=== PATIENT | female | born 1965 | race Caucasian/White ===

== ENCOUNTER 2018-11-19 15:11 | Emergency (ER) | payer OTHER ==
[~2018-11-19] VITALS: Ht 167.6 cm; Wt 95.2 kg
[~2018-11-19 15:11] MED LIST: Aspir 8181 MG PO; CEPH500 PO; Cleocin HCl300 MG PO; FERSU250ER PO; HEARTBURN; HYDCHL25 PO; IBUP600 PO; Lasix20 MG PO; Lasix40 MG PO; MAGCIT300 PO; Norco 5-325 Ta1 EACH PO; SENNP PO; SULTRIDS PO; Zithromax250 MG PO
== END 2018-11-19 16:39 | disposition home or self-care (01) ==
LOC: ER 15:11
DX: S61.211A Laceration without foreign body of left index finger without damage to nail, initial encounter (principal); F17.200 Nicotine dependence, unspecified, uncomplicated; Z79.899 Other long term (current) drug therapy; W26.0XXA Contact with knife, initial encounter
CPT/HCPCS: 12001; 90471; 90714; 99282-25

== ENCOUNTER 2018-11-29 21:17 | Emergency (ER) | payer OTHER ==
[~2018-11-29] VITALS: Ht 167.6 cm; Wt 90.7 kg
[2018-11-29] MEDS ORDERED: Keflex500 MG PO (22:55)
[2018-11-29] MEDS ORDERED: Bactrim Ds Tab1 EACH PO (22:55)
== END 2018-11-29 23:00 | disposition home or self-care (01) ==
LOC: ER 21:17
DX: S61.211D Laceration without foreign body of left index finger without damage to nail, subsequent encounter (principal); L02.512 Cutaneous abscess of left hand; L03.012 Cellulitis of left finger; Z79.899 Other long term (current) drug therapy; F17.200 Nicotine dependence, unspecified, uncomplicated
CPT/HCPCS: 99281

== ENCOUNTER 2020-08-04 21:13 | Emergency (ER) | payer OTHER ==
[~2020-08-04] VITALS: Ht 167.6 cm; Wt 104.3 kg
[~2020-08-04 21:13] MED LIST changes: +Bactrim Ds Tab1 EACH PO; +Keflex500 MG PO
[2020-08-04 23:51] LABS: BASOPHILS ABSOLUTE AUTO 0.07 K/mm3 (0.00-0.23); BASOPHILS PERCENT AUTO 1 % (0-2); EOSINOPHILS ABSOLUTE AUTO 0.14 K/mm3 (0.00-0.68); EOSINOPHILS PERCENT AUTO 1 % (0-6); Hematocrit 43.4 % (33.0-51.0); Hemoglobin 14.7 g/dL (11.5-16.0); IMMATURE GRAN ABSOLUTE AUTO 0.03 K/mm3 (0.00-0.10); IMMATURE GRAN PERCENT AUTO 0 % (0-1); LYMPHOCYTES ABSOLUTE AUTO 3.38 K/mm3 (0.84-5.20); LYMPHOCYTES PERCENT AUTO 24 % (21-46); MONOCYTES ABSOLUTE AUTO 1.19 K/mm3 (0.16-1.47); MONOCYTES PERCENT AUTO 9 % (4-13); Mean Corpuscular HGB 30.2 pg (26.0-34.0); Mean Corpuscular HGB Conc 33.9 g/dL (31.5-36.5); Mean Corpuscular Volume 89 fL (80-100); Mean Platelet Volume 8.8 fL (9.1-12.4); NEUTROPHILS ABSOLUTE AUTO 9.27 K/mm3 (1.96-9.15); NEUTROPHILS PERCENT AUTO 66 % (41-73); Platelet Count 382 K/mm3 (150-400); RDW Coefficient Variation 13.1 % (11.7-14.2); RDW Standard Deviation 42.6 fL (35.1-46.3); Red Blood Cell Count 4.87 M/mm3 (3.80-5.20); White Blood Cell Count 14.08 K/mm3 (4.00-11.30)
[2020-08-05 00:06] LABS: Alanine Aminotransfer (ALT/SGP 44 U/L (12-78); Albumin, Blood 3.9 g/dL (3.4-5.0); Albumin/Globulin Ratio 0.9 (0.8-1.8); Alk Phos 87 U/L (50-136); Anion Gap 7 mmol/L (6-16); Aspartate Aminotrans (AST/SGOT 40 U/L (12-37); Bilirubin, Total 0.5 mg/dL (0.1-1.0); Blood Urea Nitrogen 28 mg/dL (8-24); Bun/Creatinine Ratio 21.9 (12.0-20.0); CO2, Blood 27 mmol/L (21-32); Calcium, Blood 9.2 mg/dL (8.5-10.1); Chloride, Blood 102 mmol/L (98-108); Creatinine, Blood 1.28 mg/dL (0.40-1.00); Globulin, Blood 4.4 g/dL (2.2-4.0); Glomerular Filtration Rate 46 (60-); Glucose, Blood 124 mg/dL (70-99); Potassium, Blood 3.5 mmol/L (3.5-5.5); Sodium, Blood 136 mmol/L (136-145); Total Protein, Blood 8.3 g/dL (6.4-8.2); Troponin I <0.015 ng/mL (0.000-0.040)
[2020-08-05] MEDS ORDERED: Neurontin 100100 MG PO (00:37)
== END 2020-08-05 01:00 | disposition home or self-care (01) ==
LOC: ER 21:13
PROVIDERS: Physician Assistant
DX: G62.9 Polyneuropathy, unspecified (principal); Z86.718 Personal history of other venous thrombosis and embolism
CPT/HCPCS: 36415; 71046; 80053; 83690; 83880; 84484; 85025; 93005; 93010; 93970; 99284-25

== ENCOUNTER 2020-11-21 19:53 | Emergency (ER) | payer OTHER ==
[~2020-11-21] VITALS: Ht 167.6 cm; Wt 90.7 kg
[~2020-11-21 19:53] MED LIST changes: +Neurontin 100100 MG PO
[2020-11-21] MEDS ORDERED: CEPH500 PO (21:58)
== END 2020-11-21 22:11 | disposition home or self-care (01) ==
LOC: ER 19:53
DX: L03.116 Cellulitis of left lower limb (principal); L97.929 Non-pressure chronic ulcer of unspecified part of left lower leg with unspecified severity; F17.210 Nicotine dependence, cigarettes, uncomplicated
CPT/HCPCS: 73590; 99283-25; A9270

== ENCOUNTER 2021-03-20 00:23 | Day surgery (SDC) | payer OTHER ==
[~2021-03-20 00:23] MED LIST changes: +Percocet 5-3251 EACH PO
== END 2021-03-20 23:07 | disposition home or self-care (01) ==
LOC: WOUND 00:23
DX: L97.219 Non-pressure chronic ulcer of right calf with unspecified severity (principal); L97.229 Non-pressure chronic ulcer of left calf with unspecified severity; L97.829 Non-pressure chronic ulcer of other part of left lower leg with unspecified severity; I87.312 Chronic venous hypertension (idiopathic) with ulcer of left lower extremity; I87.311 Chronic venous hypertension (idiopathic) with ulcer of right lower extremity; R60.0 Localized edema; L03.116 Cellulitis of left lower limb; I73.9 Peripheral vascular disease, unspecified
CPT/HCPCS: A9270; G0463

== ENCOUNTER → 2021-03-27 | Day surgery (SDC) | payer OTHER | LOC: WOUND 01:21 | DX: I87.313 Chronic venous hypertension (idiopathic) with ulcer of bilateral lower extremity (principal); L97.229 Non-pressure chronic ulcer of left calf with unspecified severity; L97.819 Non-pressure chronic ulcer of other part of right lower leg with unspecified severity; R60.0 Localized edema; L03.116 Cellulitis of left lower limb; I73.9 Peripheral vascular disease, unspecified | CPT/HCPCS: G0463 ==

== ENCOUNTER 2021-04-10 01:10 | Day surgery (SDC) | payer OTHER | END 2021-04-10 23:37 | disposition home or self-care (01) | LOC: WOUND 01:10 | DX: I87.313 Chronic venous hypertension (idiopathic) with ulcer of bilateral lower extremity (principal); L97.222 Non-pressure chronic ulcer of left calf with fat layer exposed; L97.819 Non-pressure chronic ulcer of other part of right lower leg with unspecified severity; R60.0 Localized edema; L03.116 Cellulitis of left lower limb; I73.9 Peripheral vascular disease, unspecified ==

== ENCOUNTER 2021-04-12 01:55 | Day surgery (SDC) | payer OTHER | END 2021-04-12 12:00 | disposition home or self-care (01) | LOC: WOUND 01:55 | DX: L97.222 Non-pressure chronic ulcer of left calf with fat layer exposed (principal) ==

== ENCOUNTER 2021-04-19 03:14 | Day surgery (SDC) | payer OTHER | END 2021-04-19 23:16 | disposition home or self-care (01) | LOC: WOUND 03:14 | DX: L97.222 Non-pressure chronic ulcer of left calf with fat layer exposed (principal); L97.819 Non-pressure chronic ulcer of other part of right lower leg with unspecified severity; I87.312 Chronic venous hypertension (idiopathic) with ulcer of left lower extremity; I87.311 Chronic venous hypertension (idiopathic) with ulcer of right lower extremity; R60.0 Localized edema; L03.116 Cellulitis of left lower limb; I73.9 Peripheral vascular disease, unspecified | CPT/HCPCS: G0463 ==

== ENCOUNTER 2021-04-24 01:01 | Day surgery (SDC) | payer OTHER | END 2021-04-24 22:53 | disposition home or self-care (01) | LOC: WOUND 01:01 | DX: I87.313 Chronic venous hypertension (idiopathic) with ulcer of bilateral lower extremity (principal); L97.222 Non-pressure chronic ulcer of left calf with fat layer exposed; L97.818 Non-pressure chronic ulcer of other part of right lower leg with other specified severity; L03.116 Cellulitis of left lower limb; I73.9 Peripheral vascular disease, unspecified; R60.0 Localized edema | CPT/HCPCS: A9270; G0463 ==

== ENCOUNTER 2021-05-01 01:56 | Day surgery (SDC) | payer OTHER | END 2021-05-01 23:26 | disposition home or self-care (01) | LOC: WOUND 01:56 | DX: L97.822 Non-pressure chronic ulcer of other part of left lower leg with fat layer exposed (principal); L97.812 Non-pressure chronic ulcer of other part of right lower leg with fat layer exposed; I87.312 Chronic venous hypertension (idiopathic) with ulcer of left lower extremity; I87.311 Chronic venous hypertension (idiopathic) with ulcer of right lower extremity; R60.0 Localized edema; L03.116 Cellulitis of left lower limb; I73.9 Peripheral vascular disease, unspecified | CPT/HCPCS: A9270; G0463 ==

== ENCOUNTER 2021-05-29 00:29 | Day surgery (SDC) | payer OTHER | END 2021-05-29 23:08 | disposition home or self-care (01) | LOC: WOUND 00:29 | DX: I87.313 Chronic venous hypertension (idiopathic) with ulcer of bilateral lower extremity (principal); L97.222 Non-pressure chronic ulcer of left calf with fat layer exposed; L97.812 Non-pressure chronic ulcer of other part of right lower leg with fat layer exposed; L03.116 Cellulitis of left lower limb; I73.9 Peripheral vascular disease, unspecified; R60.0 Localized edema | CPT/HCPCS: A9270 ==

== ENCOUNTER 2021-06-05 01:50 | Day surgery (SDC) | payer OTHER | END 2021-06-05 23:23 | disposition home or self-care (01) | LOC: WOUND 01:50 | DX: I87.313 Chronic venous hypertension (idiopathic) with ulcer of bilateral lower extremity (principal); L97.222 Non-pressure chronic ulcer of left calf with fat layer exposed; L97.812 Non-pressure chronic ulcer of other part of right lower leg with fat layer exposed; R60.0 Localized edema; L03.116 Cellulitis of left lower limb; I73.9 Peripheral vascular disease, unspecified | CPT/HCPCS: A9270; G0463 ==

== ENCOUNTER 2021-06-17 01:54 | Day surgery (SDC) | payer OTHER | END 2021-06-17 22:54 | disposition home or self-care (01) | LOC: WOUND 01:54 | DX: I87.312 Chronic venous hypertension (idiopathic) with ulcer of left lower extremity (principal); I87.311 Chronic venous hypertension (idiopathic) with ulcer of right lower extremity; R60.0 Localized edema; L03.116 Cellulitis of left lower limb; I73.9 Peripheral vascular disease, unspecified; L97.822 Non-pressure chronic ulcer of other part of left lower leg with fat layer exposed; L97.812 Non-pressure chronic ulcer of other part of right lower leg with fat layer exposed ==

== ENCOUNTER 2021-06-19 02:52 | Day surgery (SDC) | payer OTHER | END 2021-06-19 23:22 | disposition home or self-care (01) | LOC: WOUND 02:52 | DX: I87.313 Chronic venous hypertension (idiopathic) with ulcer of bilateral lower extremity (principal); L97.829 Non-pressure chronic ulcer of other part of left lower leg with unspecified severity; L97.819 Non-pressure chronic ulcer of other part of right lower leg with unspecified severity; I73.9 Peripheral vascular disease, unspecified; R60.0 Localized edema ==

== ENCOUNTER 2021-06-25 09:17 | Day surgery (SDC) | payer OTHER | END 2021-06-25 23:49 | disposition home or self-care (01) | LOC: WOUND 09:17 | DX: I87.312 Chronic venous hypertension (idiopathic) with ulcer of left lower extremity (principal); I87.311 Chronic venous hypertension (idiopathic) with ulcer of right lower extremity; L97.212 Non-pressure chronic ulcer of right calf with fat layer exposed; L97.222 Non-pressure chronic ulcer of left calf with fat layer exposed; L97.812 Non-pressure chronic ulcer of other part of right lower leg with fat layer exposed; L97.822 Non-pressure chronic ulcer of other part of left lower leg with fat layer exposed; L03.116 Cellulitis of left lower limb; R60.0 Localized edema | CPT/HCPCS: A9270; G0463 ==

== ENCOUNTER 2021-07-02 01:29 | Day surgery (SDC) | payer OTHER | END 2021-07-02 23:27 | disposition home or self-care (01) | LOC: WOUND 01:29 | DX: I87.313 Chronic venous hypertension (idiopathic) with ulcer of bilateral lower extremity (principal); L97.212 Non-pressure chronic ulcer of right calf with fat layer exposed; L97.222 Non-pressure chronic ulcer of left calf with fat layer exposed; L03.115 Cellulitis of right lower limb; L03.116 Cellulitis of left lower limb; R60.0 Localized edema | CPT/HCPCS: A9270; G0463 ==

== ENCOUNTER 2022-12-09 02:26 | Day surgery (SDC) | payer OTHER ==
[2022-12-09 14:30] VITALS: BP 141/73
[2022-12-09 14:50] LABS: BASOPHILS ABSOLUTE AUTO 0.06 K/mm3 (0.00-0.23); BASOPHILS PERCENT AUTO 1 % (0-2); EOSINOPHILS ABSOLUTE AUTO 0.26 K/mm3 (0.00-0.68); EOSINOPHILS PERCENT AUTO 3 % (0-6); Hematocrit 37.4 % (33.0-51.0); Hemoglobin 12.6 g/dL (11.5-16.0); IMMATURE GRAN ABSOLUTE AUTO 0.03 K/mm3 (0.00-0.10); IMMATURE GRAN PERCENT AUTO 0 % (0-1); LYMPHOCYTES ABSOLUTE AUTO 2.25 K/mm3 (0.84-5.20); LYMPHOCYTES PERCENT AUTO 25 % (21-46); MONOCYTES ABSOLUTE AUTO 0.68 K/mm3 (0.16-1.47); MONOCYTES PERCENT AUTO 8 % (4-13); Mean Corpuscular HGB Conc 33.7 g/dL (31.5-36.5); Mean Corpuscular Volume 92 fL (80-100); Mean Platelet Volume 8.9 fL (9.1-12.4); NEUTROPHILS ABSOLUTE AUTO 5.77 K/mm3 (1.96-9.15); NEUTROPHILS PERCENT AUTO 64 % (41-73); Platelet Count 274 K/mm3 (150-400); RDW Coefficient Variation 13.5 % (11.7-14.2); RDW Standard Deviation 45.5 fL (35.1-46.3); Red Blood Cell Count 4.07 M/mm3 (3.80-5.20); White Blood Cell Count 9.05 K/mm3 (4.00-11.30)
[2022-12-09 15:10] LABS: Albumin, Blood 3.6 g/dL (3.4-5.0); Bilirubin, Total 0.5 mg/dL (0.1-1.0); Bun/Creatinine Ratio 12.9 (12.0-20.0); Creatinine, Blood 0.93 mg/dL (0.40-1.00); Globulin, Blood 3.6 g/dL (2.2-4.0); Potassium, Blood 3.1 mmol/L (3.5-5.5); Total Protein, Blood 7.2 g/dL (6.4-8.2)
[2022-12-09] MEDS ORDERED: FURO20 PO (16:39)
[2022-12-09] MEDS ORDERED: SILVADENE20 G1 TOP (16:40)
[2022-12-09] MEDS ORDERED: INFLECTRA100 MG IV (16:43)
== END 2022-12-09 17:15 | disposition home or self-care (01) ==
LOC: ATC 02:26
PROVIDERS: Dermatology
DX: L88 Pyoderma gangrenosum (principal)
CPT/HCPCS: 80053; 85025; 96413; 96415; A9270; J7050; Q5103

== ENCOUNTER 2022-12-23 00:20 | Day surgery (SDC) | payer OTHER ==
[~2022-12-23 00:20] MED LIST changes: +FURO20 PO; +INFLECTRA100 MG IV; +SILVADENE20 G1 TOP
[2022-12-23 14:15] VITALS: BP 183/90
--- NOTE | 2022-12-23 15:06 | NUR ---
ELIZABETH ONEILL, TRIED 3 TIMES TO GET IV.
== END 2022-12-23 17:30 | disposition home or self-care (01) ==
LOC: ATC 00:20
DX: L88 Pyoderma gangrenosum (principal); Z79.899 Other long term (current) drug therapy; R60.0 Localized edema
CPT/HCPCS: A9270; J7050; Q5103

== ENCOUNTER 2023-01-20 02:57 | Day surgery (SDC) | payer OTHER ==
[2023-01-20 15:05] VITALS: BP 147/92
[2023-01-20 15:30] LABS: BASOPHILS ABSOLUTE AUTO 0.06 K/mm3 (0.00-0.23); BASOPHILS PERCENT AUTO 1 % (0-2); EOSINOPHILS ABSOLUTE AUTO 0.21 K/mm3 (0.00-0.68); EOSINOPHILS PERCENT AUTO 3 % (0-6); Hematocrit 38.5 % (33.0-51.0); Hemoglobin 12.6 g/dL (11.5-16.0); IMMATURE GRAN ABSOLUTE AUTO 0.02 K/mm3 (0.00-0.10); IMMATURE GRAN PERCENT AUTO 0 % (0-1); LYMPHOCYTES ABSOLUTE AUTO 2.65 K/mm3 (0.84-5.20); LYMPHOCYTES PERCENT AUTO 33 % (21-46); MONOCYTES ABSOLUTE AUTO 0.57 K/mm3 (0.16-1.47); MONOCYTES PERCENT AUTO 7 % (4-13); Mean Corpuscular HGB Conc 32.7 g/dL (31.5-36.5); Mean Corpuscular Volume 95 fL (80-100); Mean Platelet Volume 10.3 fL (9.1-12.4); NEUTROPHILS ABSOLUTE AUTO 4.42 K/mm3 (1.96-9.15); NEUTROPHILS PERCENT AUTO 56 % (41-73); Platelet Count 245 K/mm3 (150-400); RDW Coefficient Variation 13.6 % (11.7-14.2); RDW Standard Deviation 47.8 fL (35.1-46.3); Red Blood Cell Count 4.06 M/mm3 (3.80-5.20); White Blood Cell Count 7.93 K/mm3 (4.00-11.30)
[2023-01-20 16:21] LABS: Albumin, Blood 3.6 g/dL (3.4-5.0); Bilirubin, Total 0.4 mg/dL (0.1-1.0); Bun/Creatinine Ratio 13.1 (12.0-20.0); Calcium, Blood 8.8 mg/dL (8.5-10.1); Creatinine, Blood 0.76 mg/dL (0.40-1.00); Globulin, Blood 3.7 g/dL (2.2-4.0); Potassium, Blood 4.2 mmol/L (3.5-5.5); Total Protein, Blood 7.3 g/dL (6.4-8.2)
== END 2023-01-20 18:10 | disposition home or self-care (01) ==
LOC: ATC 02:57
PROVIDERS: Dermatology
DX: L88 Pyoderma gangrenosum (principal); L73.2 Hidradenitis suppurativa
CPT/HCPCS: 80053; 85025; 96413; 96415; A9270; J7050; Q5103

== ENCOUNTER 2023-03-24 02:27 | Day surgery (SDC) | payer OTHER ==
--- NOTE | 2023-03-19 15:22 | NUR ---
NO CALL, NO SHOW
[2023-03-24 14:35] VITALS: BP 151/76
[2023-03-24 15:29] LABS: BASOPHILS ABSOLUTE AUTO 0.07 K/mm3 (0.00-0.23); BASOPHILS PERCENT AUTO 1 % (0-2); EOSINOPHILS ABSOLUTE AUTO 1.39 K/mm3 (0.00-0.68); EOSINOPHILS PERCENT AUTO 14 % (0-6); Hematocrit 35.4 % (33.0-51.0); Hemoglobin 11.6 g/dL (11.5-16.0); IMMATURE GRAN ABSOLUTE AUTO 0.02 K/mm3 (0.00-0.10); IMMATURE GRAN PERCENT AUTO 0 % (0-1); LYMPHOCYTES ABSOLUTE AUTO 2.63 K/mm3 (0.84-5.20); LYMPHOCYTES PERCENT AUTO 27 % (21-46); MONOCYTES ABSOLUTE AUTO 0.83 K/mm3 (0.16-1.47); MONOCYTES PERCENT AUTO 9 % (4-13); Mean Corpuscular HGB 30.2 pg (26.0-34.0); Mean Corpuscular HGB Conc 32.8 g/dL (31.5-36.5); Mean Corpuscular Volume 92 fL (80-100); Mean Platelet Volume 9.5 fL (9.1-12.4); NEUTROPHILS ABSOLUTE AUTO 4.76 K/mm3 (1.96-9.15); NEUTROPHILS PERCENT AUTO 49 % (41-73); Platelet Count 389 K/mm3 (150-400); RDW Coefficient Variation 13.5 % (11.7-14.2); Red Blood Cell Count 3.84 M/mm3 (3.80-5.20)
[2023-03-24 15:55] LABS: Albumin, Blood 3.2 g/dL (3.4-5.0); Albumin/Globulin Ratio 0.8 (0.8-1.8); Bilirubin, Total 0.4 mg/dL (0.1-1.0); Calcium, Blood 8.9 mg/dL (8.5-10.1); Creatinine, Blood 0.7 mg/dL (0.40-1.00); Globulin, Blood 3.9 g/dL (2.2-4.0); Potassium, Blood 4.4 mmol/L (3.5-5.5); Total Protein, Blood 7.1 g/dL (6.4-8.2)
== END 2023-03-24 17:20 | disposition home or self-care (01) ==
LOC: ATC 02:27
PROVIDERS: Dermatology
DX: L88 Pyoderma gangrenosum (principal)
CPT/HCPCS: 80053; 85025; 96413; 96415; A9270; J7050; Q5103

== ENCOUNTER 2023-09-14 03:33 | Day surgery (SDC) | payer OTHER ==
[2023-09-14] MEDS ORDERED: DiphenhydrAMINE HCL 25 MG Cap PO PRN (07:10)
[2023-09-14] MEDS ORDERED: Loratadine 10 MG Tab PO SCH (07:10)
[2023-09-14] MEDS ORDERED: Acetaminophen 325 MG TABLET PO PRN (07:10)
[2023-09-14 15:00] VITALS: BP 129/76
[2023-09-14] MEDS ORDERED: Infliximab-DYYB 1,000 MG in NS 250 ML IV SCH (15:15)
[2023-09-14 15:26] LABS: Hematocrit 35.7 % (33.0-51.0); Hemoglobin 11.8 g/dL (11.5-16.0); Mean Corpuscular HGB 30.3 pg (26.0-34.0); Mean Corpuscular HGB Conc 33.1 g/dL (31.5-36.5); Mean Corpuscular Volume 92 fL (80-100); Mean Platelet Volume 9.5 fL (9.1-12.4); Platelet Count 229 K/mm3 (150-400); RDW Coefficient Variation 13.6 % (11.7-14.2); RDW Standard Deviation 45.5 fL (35.1-46.3); Red Blood Cell Count 3.89 M/mm3 (3.80-5.20); White Blood Cell Count 7.62 K/mm3 (4.00-11.30)
[2023-09-14 15:52] LABS: Albumin, Blood 3.2 g/dL (3.4-5.0); Albumin/Globulin Ratio 0.8 (0.8-1.8); Bilirubin, Total 0.5 mg/dL (0.1-1.0); Bun/Creatinine Ratio 20.7 (12.0-20.0); Calcium, Blood 8.3 mg/dL (8.5-10.1); Creatinine, Blood 0.68 mg/dL (0.40-1.00); Globulin, Blood 4.1 g/dL (2.2-4.0); Potassium, Blood 4.6 mmol/L (3.5-5.5); Total Protein, Blood 7.3 g/dL (6.4-8.2)
== END 2023-09-14 18:00 | disposition home or self-care (01) ==
LOC: ATC 03:33
PROVIDERS: Dermatology
DX: L88 Pyoderma gangrenosum (principal); Z79.899 Other long term (current) drug therapy
CPT/HCPCS: 80053; 85027; 96413; 96415; A9270; J7050; Q5103

== ENCOUNTER 2023-11-17 03:06 | Day surgery (SDC) | payer OTHER ==
[2023-11-17] MEDS ORDERED: DiphenhydrAMINE HCL 25 MG Cap PO PRN (07:25)
[2023-11-17] MEDS ORDERED: Loratadine 10 MG Tab PO SCH (07:25)
[2023-11-17] MEDS ORDERED: Acetaminophen 325 MG TABLET PO PRN (07:25)
[2023-11-17 13:57] VITALS: BP 162/78
[2023-11-17] MEDS ORDERED: Infliximab-DYYB 1,000 MG in NS 250 ML IV SCH (14:25)
[2023-11-17 15:43] LABS: BASOPHILS ABSOLUTE AUTO 0.06 K/mm3 (0.00-0.23); BASOPHILS PERCENT AUTO 1 % (0-2); EOSINOPHILS PERCENT AUTO 4 % (0-6); Hematocrit 35.1 % (33.0-51.0); Hemoglobin 11.6 g/dL (11.5-16.0); IMMATURE GRAN ABSOLUTE AUTO 0.01 K/mm3 (0.00-0.10); IMMATURE GRAN PERCENT AUTO 0 % (0-1); LYMPHOCYTES ABSOLUTE AUTO 1.92 K/mm3 (0.84-5.20); LYMPHOCYTES PERCENT AUTO 27 % (21-46); MONOCYTES ABSOLUTE AUTO 0.93 K/mm3 (0.16-1.47); MONOCYTES PERCENT AUTO 13 % (4-13); Mean Corpuscular HGB 30.1 pg (26.0-34.0); Mean Corpuscular Volume 91 fL (80-100); Mean Platelet Volume 9.5 fL (9.1-12.4); NEUTROPHILS ABSOLUTE AUTO 3.97 K/mm3 (1.96-9.15); NEUTROPHILS PERCENT AUTO 55 % (41-73); Platelet Count 325 K/mm3 (150-400); RDW Coefficient Variation 14.3 % (11.7-14.2); RDW Standard Deviation 47.6 fL (35.1-46.3); Red Blood Cell Count 3.85 M/mm3 (3.80-5.20); White Blood Cell Count 7.19 K/mm3 (4.00-11.30)
[2023-11-17 16:08] LABS: Albumin, Blood 3.2 g/dL (3.4-5.0); Albumin/Globulin Ratio 0.8 (0.8-1.8); Bilirubin, Total 0.3 mg/dL (0.1-1.0); Bun/Creatinine Ratio 18.6 (12.0-20.0); Calcium, Blood 9.1 mg/dL (8.5-10.1); Creatinine, Blood 0.7 mg/dL (0.40-1.00); Globulin, Blood 3.8 g/dL (2.2-4.0)
== END 2023-11-17 17:28 | disposition home or self-care (01) ==
LOC: ATC 03:06
PROVIDERS: Dermatology
DX: L88 Pyoderma gangrenosum (principal)
CPT/HCPCS: 80053; 85025; 96413; 96415; A9270; J7050; Q5103

== ENCOUNTER 2024-01-11 03:08 | Day surgery (SDC) | payer OTHER ==
[2024-01-11] MEDS ORDERED: DiphenhydrAMINE HCL 25 MG Cap PO SCH (07:30)
[2024-01-11] MEDS ORDERED: Acetaminophen 325 MG TABLET PO SCH (07:30)
[2024-01-11] MEDS ORDERED: Loratadine 10 MG Tab PO SCH (07:30)
[2024-01-11 13:35] VITALS: BP 171/98
[2024-01-11] MEDS ORDERED: Infliximab-DYYB 1,000 MG in NS 250 ML IV SCH (13:55)
== END 2024-01-11 16:31 | disposition home or self-care (01) ==
LOC: ATC 03:08
DX: L88 Pyoderma gangrenosum (principal); Z79.899 Other long term (current) drug therapy
CPT/HCPCS: J7050; Q5103

== ENCOUNTER 2024-04-18 01:18 | Day surgery (SDC) | payer OTHER ==
[~2024-04-18] VITALS: Wt 136.9 kg
[2024-04-18] MEDS ORDERED: Loratadine 10 MG Tab PO SCH (07:10)
[2024-04-18] MEDS ORDERED: Acetaminophen 325 MG TABLET PO SCH (07:10)
[2024-04-18] MEDS ORDERED: DiphenhydrAMINE HCL 25 MG Cap PO SCH (07:10)
[2024-04-18 14:06] VITALS: BP 163/96
[2024-04-18 14:10] VITALS: BP 163/96
[2024-04-18] MEDS ORDERED: TUMERIC (14:12)
[2024-04-18] MEDS ORDERED: MAGNESIUM OXID500 MG PO (14:12)
[2024-04-18] MEDS ORDERED: ZINC15 PO (14:12)
[2024-04-18] MEDS ORDERED: Infliximab-DYYB 1,000 MG in NS 250 ML IV SCH (14:50)
[2024-04-18 14:53] LABS: BASOPHILS ABSOLUTE AUTO 0.05 K/mm3 (0.00-0.23); BASOPHILS PERCENT AUTO 1 % (0-2); EOSINOPHILS ABSOLUTE AUTO 0.31 K/mm3 (0.00-0.68); EOSINOPHILS PERCENT AUTO 5 % (0-6); Hematocrit 34.4 % (33.0-51.0); Hemoglobin 11.5 g/dL (11.5-16.0); IMMATURE GRAN ABSOLUTE AUTO 0.01 K/mm3 (0.00-0.10); IMMATURE GRAN PERCENT AUTO 0 % (0-1); LYMPHOCYTES ABSOLUTE AUTO 1.95 K/mm3 (0.84-5.20); LYMPHOCYTES PERCENT AUTO 31 % (21-46); MONOCYTES ABSOLUTE AUTO 0.63 K/mm3 (0.16-1.47); MONOCYTES PERCENT AUTO 10 % (4-13); Mean Corpuscular HGB 30.8 pg (26.0-34.0); Mean Corpuscular HGB Conc 33.4 g/dL (31.5-36.5); Mean Corpuscular Volume 92 fL (80-100); NEUTROPHILS ABSOLUTE AUTO 3.39 K/mm3 (1.96-9.15); NEUTROPHILS PERCENT AUTO 53 % (41-73); Platelet Count 268 K/mm3 (150-400); RDW Coefficient Variation 13.9 % (11.7-14.2); RDW Standard Deviation 46.8 fL (35.1-46.3); Red Blood Cell Count 3.73 M/mm3 (3.80-5.20); White Blood Cell Count 6.34 K/mm3 (4.00-11.30)
[2024-04-18 15:28] LABS: Albumin, Blood 3.5 g/dL (3.4-5.0); Albumin/Globulin Ratio 0.9 (0.8-1.8); Bilirubin, Total 0.8 mg/dL (0.1-1.0); Bun/Creatinine Ratio 31.5 (12.0-20.0); Calcium, Blood 8.9 mg/dL (8.5-10.1); Creatinine, Blood 0.6 mg/dL (0.40-1.00); Globulin, Blood 3.8 g/dL (2.2-4.0); Potassium, Blood 4.2 mmol/L (3.5-5.5); Total Protein, Blood 7.3 g/dL (6.4-8.2)
== END 2024-04-18 17:57 | disposition home or self-care (01) ==
LOC: ATC 01:18
PROVIDERS: Dermatology
DX: L88 Pyoderma gangrenosum (principal)
CPT/HCPCS: 80053; 85025; 96413; 96415; A9270; J7050; Q5103

== ENCOUNTER 2024-06-27 08:29 | Day surgery (SDC) | payer OTHER ==
[~2024-06-27 08:29] MED LIST changes: +Acetaminophen 325 MG TABLET PO SCH; +Loratadine 10 MG Tab PO SCH; +MAGNESIUM OXID500 MG PO; +TUMERIC; +ZINC15 PO
[2024-06-27 13:39] VITALS: BP 147/80
[2024-06-27] MEDS ORDERED: Infliximab-DYYB 1,000 MG in NS 250 ML IV SCH (14:15)
[2024-06-27 15:03] LABS: BASOPHILS ABSOLUTE AUTO 0.03 K/mm3 (0.00-0.23); BASOPHILS PERCENT AUTO 0 % (0-2); EOSINOPHILS ABSOLUTE AUTO 0.18 K/mm3 (0.00-0.68); EOSINOPHILS PERCENT AUTO 3 % (0-6); Hematocrit 38.8 % (33.0-51.0); Hemoglobin 12.5 g/dL (11.5-16.0); IMMATURE GRAN ABSOLUTE AUTO 0.02 K/mm3 (0.00-0.10); IMMATURE GRAN PERCENT AUTO 0 % (0-1); LYMPHOCYTES ABSOLUTE AUTO 1.88 K/mm3 (0.84-5.20); LYMPHOCYTES PERCENT AUTO 28 % (21-46); MONOCYTES ABSOLUTE AUTO 0.65 K/mm3 (0.16-1.47); MONOCYTES PERCENT AUTO 10 % (4-13); Mean Corpuscular HGB 29.1 pg (26.0-34.0); Mean Corpuscular HGB Conc 32.2 g/dL (31.5-36.5); Mean Corpuscular Volume 90 fL (80-100); Mean Platelet Volume 9.3 fL (9.1-12.4); NEUTROPHILS ABSOLUTE AUTO 4.02 K/mm3 (1.96-9.15); NEUTROPHILS PERCENT AUTO 59 % (41-73); Platelet Count 332 K/mm3 (150-400); RDW Coefficient Variation 13.7 % (11.7-14.2); RDW Standard Deviation 44.4 fL (35.1-46.3); Red Blood Cell Count 4.29 M/mm3 (3.80-5.20); White Blood Cell Count 6.78 K/mm3 (4.00-11.30)
[2024-06-27 15:29] LABS: Albumin, Blood 3.4 g/dL (3.4-5.0); Albumin/Globulin Ratio 0.9 (0.8-1.8); Bilirubin, Total 0.4 mg/dL (0.1-1.0); Bun/Creatinine Ratio 12.9 (12.0-20.0); Calcium, Blood 8.8 mg/dL (8.5-10.1); Creatinine, Blood 0.78 mg/dL (0.40-1.00); Globulin, Blood 3.9 g/dL (2.2-4.0); Potassium, Blood 4.1 mmol/L (3.5-5.5); Total Protein, Blood 7.3 g/dL (6.4-8.2)
== END 2024-06-27 16:44 | disposition home or self-care (01) ==
LOC: ATC 08:29
PROVIDERS: Dermatology
DX: L88 Pyoderma gangrenosum (principal); Z79.899 Other long term (current) drug therapy
CPT/HCPCS: 80053; 85025; 96413; 96415; A9270; J7050; Q5103

== ENCOUNTER 2024-10-06 08:02 | Day surgery (SDC) | payer OTHER ==
[~2024-10-06 08:02] MED LIST changes: -Acetaminophen 325 MG TABLET PO SCH; -Loratadine 10 MG Tab PO SCH
[2024-10-06 13:34] VITALS: BP 139/98
[2024-10-06] MEDS ORDERED: Infliximab-DYYB 1,000 MG in NS 250 ML IV SCH (13:50)
[2024-10-06 14:22] LABS: BASOPHILS ABSOLUTE AUTO 0.06 K/mm3 (0.00-0.23); BASOPHILS PERCENT AUTO 1 % (0-2); EOSINOPHILS ABSOLUTE AUTO 0.15 K/mm3 (0.00-0.68); EOSINOPHILS PERCENT AUTO 2 % (0-6); Hematocrit 36.8 % (33.0-51.0); Hemoglobin 12.3 g/dL (11.5-16.0); IMMATURE GRAN ABSOLUTE AUTO 0.03 K/mm3 (0.00-0.10); IMMATURE GRAN PERCENT AUTO 0 % (0-1); LYMPHOCYTES ABSOLUTE AUTO 2.35 K/mm3 (0.84-5.20); LYMPHOCYTES PERCENT AUTO 30 % (21-46); MONOCYTES ABSOLUTE AUTO 0.93 K/mm3 (0.16-1.47); MONOCYTES PERCENT AUTO 12 % (4-13); Mean Corpuscular HGB Conc 33.4 g/dL (31.5-36.5); Mean Corpuscular Volume 91 fL (80-100); NEUTROPHILS ABSOLUTE AUTO 4.34 K/mm3 (1.96-9.15); NEUTROPHILS PERCENT AUTO 55 % (41-73); NRBC ABSOLUTE 0.00 K/mm3 (0.00-0.02); NRBC Auto 0.0 /100 WBC (0.0-0.2); Platelet Count 233 K/mm3 (150-400); RDW Coefficient Variation 14.9 % (11.7-14.2); RDW Standard Deviation 49.6 fL (35.1-46.3)
[2024-10-06 14:47] LABS: Alanine Aminotransfer (ALT/SGP 20.0 U/L (12-78); Albumin, Blood 3.2 g/dL (3.4-5.0); Albumin/Globulin Ratio 0.8 (0.8-1.8); Anion Gap 8.0 mmol/L (3-11); Aspartate Aminotrans (AST/SGOT 14.0 U/L (12-37); Bilirubin, Total 0.5 mg/dL (0.1-1.0); Blood Urea Nitrogen 12.0 mg/dL (8-24); CO2, Blood 27.0 mmol/L (21-32); Calcium, Blood 8.4 mg/dL (8.5-10.1); Chloride, Blood 106.0 mmol/L (98-108); Creatinine, Blood 0.69 mg/dL (0.40-1.00); Globulin, Blood 4.0 g/dL (2.2-4.0); Glucose, Blood 129.0 mg/dL (70-99); Potassium, Blood 4.2 mmol/L (3.5-5.5); Sodium, Blood 137.0 mmol/L (136-145); Total Protein, Blood 7.2 g/dL (6.4-8.2)
== END 2024-10-06 16:42 | disposition home or self-care (01) ==
LOC: ATC 08:02
PROVIDERS: Dermatology
DX: L88 Pyoderma gangrenosum (principal)
CPT/HCPCS: 80053; 85025; 96413; 96415; A9270; J7050; Q5103

== ENCOUNTER 2024-12-12 00:17 | Day surgery (SDC) | payer OTHER ==
[~2024-12-12] VITALS: Wt 131.2 kg
[2024-12-12 13:41] VITALS: BP 149/76
--- NOTE | 2024-12-12 15:42 | NUR ---
UNABLE TO OBTAIN IV ACCESS TODAY, PT HAS BEEN RESCHEDULED TO Nov AND WILL TRY TO HYDRATE THAT DAY.
== END 2024-12-12 15:10 | disposition home or self-care (01) ==
LOC: ATC 00:17
DX: L88 Pyoderma gangrenosum (principal); Z79.899 Other long term (current) drug therapy
CPT/HCPCS: 99211; A9270

== ENCOUNTER 2024-12-21 02:32 | Day surgery (SDC) | payer OTHER ==
[2024-12-21] MEDS ORDERED: Infliximab-DYYB 1,000 MG in NS 250 ML IV SCH (06:00)
[2024-12-21 13:51] VITALS: BP 162/59
[2024-12-21 15:07] LABS: BASOPHILS ABSOLUTE AUTO 0.05 K/mm3 (0.00-0.23); BASOPHILS PERCENT AUTO 1 % (0-2); EOSINOPHILS ABSOLUTE AUTO 0.12 K/mm3 (0.00-0.68); EOSINOPHILS PERCENT AUTO 2 % (0-6); Hematocrit 38.2 % (33.0-51.0); Hemoglobin 12.6 g/dL (11.5-16.0); IMMATURE GRAN ABSOLUTE AUTO 0.02 K/mm3 (0.00-0.10); IMMATURE GRAN PERCENT AUTO 0 % (0-1); LYMPHOCYTES ABSOLUTE AUTO 1.91 K/mm3 (0.84-5.20); LYMPHOCYTES PERCENT AUTO 28 % (21-46); MONOCYTES ABSOLUTE AUTO 0.78 K/mm3 (0.16-1.47); MONOCYTES PERCENT AUTO 12 % (4-13); Mean Corpuscular HGB Conc 33.0 g/dL (31.5-36.5); Mean Corpuscular Volume 91 fL (80-100); NEUTROPHILS ABSOLUTE AUTO 3.93 K/mm3 (1.96-9.15); NEUTROPHILS PERCENT AUTO 58 % (41-73); NRBC ABSOLUTE 0.00 K/mm3 (0.00-0.02); NRBC Auto 0.0 /100 WBC (0.0-0.2); Platelet Count 303 K/mm3 (150-400); RDW Coefficient Variation 14.0 % (11.7-14.2); RDW Standard Deviation 47.1 fL (35.1-46.3)
[2024-12-21 15:33] LABS: Alanine Aminotransfer (ALT/SGP 16.0 U/L (12-78); Albumin, Blood 3.7 g/dL (3.4-5.0); Albumin/Globulin Ratio 1.0 (0.8-1.8); Anion Gap 11.0 mmol/L (3-11); Aspartate Aminotrans (AST/SGOT 15.0 U/L (12-37); Bilirubin, Total 0.9 mg/dL (0.1-1.0); Blood Urea Nitrogen 13.0 mg/dL (8-24); CO2, Blood 27.0 mmol/L (21-32); Calcium, Blood 9.4 mg/dL (8.5-10.1); Chloride, Blood 104.0 mmol/L (98-108); Creatinine, Blood 0.89 mg/dL (0.40-1.00); Globulin, Blood 3.8 g/dL (2.2-4.0); Glucose, Blood 108.0 mg/dL (70-99); Potassium, Blood 3.6 mmol/L (3.5-5.5); Sodium, Blood 138.0 mmol/L (136-145); Total Protein, Blood 7.5 g/dL (6.4-8.2)
== END 2024-12-21 16:40 | disposition home or self-care (01) ==
LOC: ATC 02:32
PROVIDERS: Dermatology
DX: L88 Pyoderma gangrenosum (principal)
CPT/HCPCS: 80053; 85025; 96413; 96415; A9270; J7050; Q5103